=== PATIENT | male | born 1970 | race Caucasian/White ===

== ENCOUNTER 2018-01-06 04:56 | Emergency (ER) | payer BC ==
--- NOTE | 2018-01-06 05:21 | EDM.PDOC ---
<Gerardo Levine - Last Filed: 01/06/18 05:28> ED HPI GENERAL MEDICAL PROBLEM - General Chief Complaint: Abdominal Pain Stated Complaint: RIGHT SIDE ABDOMINAL AND LOWER BACK PAIN Time Seen by Provider: 01/06/18 05:12 Source of Information: Reports: Patient History Limitations: Reports: No Limitations - History of Present Illness INITIAL COMMENTS - FREE TEXT/NARRATIVE: HISTORY AND PHYSICAL: History of present illness: 47-year-old male presenting to emergency department with cc of right flank and right lower quadrant pain starting at 4:00 morning. Patient states that around 0400 this morning when he was getting ready for work he began to have sudden sharp right-sided lower back/flank pain. nitially tried to stretch thinking it was more of a muscle spasm but states that the pain only got worse. Stated the pain is more now in his abdomen. Currently pain is a 2 out of 10 constant and dull. When pain was at his worst it was 8 out of 10 and sharp. Denies any dysuria, hematuria, urgency. No history of kidney stones but does have a family history of stones in his father. Denies any bloody stool or dark tarry stool. Up until this he was feeling his normal usual self. Denies any fever, chills, nausea, vomiting, diarrhea. Currently denies any chest pain, palpitations, shortness of breath, syncopal episodes, focal neurologic deficits. On exam patient has mild right-sided CVA tenderness. Abdomen is soft, nonrigid, nondistended. There is pain on palpation of the right lower quadrant. No rebound tenderness. Positive bowel sounds all 4 quadrants Review of systems: As per history of present illness and below otherwise all systems reviewed and negative. Past medical history: As per history of present illness and as reviewed below otherwise noncontributory. Surgical history: As per history of present illness and as reviewed below otherwise noncontributory. Social history: No reported history of drug or alcohol abuse. Family history: As per history of present illness and as reviewed below otherwise noncontributory. Physical exam: HEENT: Atraumatic, normocephalic, pupils reactive, negative for conjunctival pallor or scleral icterus, mucous membranes moist, throat clear, neck supple, nontender, trachea midline. Lungs: Clear to auscultation, breath sounds equal bilaterally, chest nontender. Heart: S1S2, regular, negative for clicks, rubs, or JVD. Abdomen: Soft, nondistended, right lower quadrant tenderness. Negative for masses or hepatosplenomegaly. Right costovertebral tenderness. Pelvis: Stable nontender. Genitourinary: Deferred. Rectal: Deferred. Extremities: Atraumatic, negative for cords or calf pain. Neurovascular unremarkable. Neuro: Awake, alert, oriented. Cranial nerves II through XII unremarkable. Cerebellum unremarkable. Motor and sensory unremarkable throughout. Exam nonfocal. Diagnostics: CBC, CMP, UA/UC, CT abdomen and pelvis Therapeutics: 1 L normal saline IV 1 Impression: Right flank pain Right lower quadrant abdominal pain Plan: [] Definitive disposition and diagnosis as appropriate pending reevaluation and review of above. Right Lower Abdominal Pain Score (Numeric/FACES): 2 - Related Data Allergies Allergy/AdvReac Type Severity Reaction Status Date / Time Penicillins Allergy Unknown unknown Verified 01/06/18 05:13 Home Meds: Home Meds Tamsulosin HCl [Flomax] 0.4 mg PO DAILY #14 cap.er.24h 01/06/18 [Rx] traMADol HCl [Tramadol HCl] 50 mg PO Q6H PRN #16 tablet 01/06/18 [Rx] Course - Vital Signs Last Recorded V/S: Last Vital Signs Temp 97.6 F 01/06/18 06:43 Pulse 54 L 01/06/18 06:43 Resp 20 01/06/18 06:43 BP 140/86 01/06/18 06:43 Pulse Ox 100 01/06/18 06:43 - Orders/Labs/Meds Orders: Active Orders 24 hr Category Date Time Status Abdomen Pelvis w Cont [CT] Stat Exams 01/06/18 05:26 Taken CULTURE URINE [RM] Stat Lab 01/06/18 05:57 Received Sodium Chloride 0.9% [Saline Flush] Med 01/06/18 05:26 Active 10 ml FLUSH ASDIRECTED PRN Sodium Chloride 0.9% [Saline Flush] Med 01/06/18 05:26 Active 2.5 ml FLUSH ASDIRECTED PRN Sodium Chloride 0.9% [Saline Flush] Med 01/06/18 05:26 Active 2.5 ml FLUSH ASDIRECTED PRN Saline Lock Insert [OM.PC] Stat Oth 01/06/18 05:26 Ordered Medication Orders Sodium Chloride (Saline Flush) 2.5 ml FLUSH ASDIRECTED PRN PRN Reason: Keep Vein Open Last Admin: 01/06/18 05:32 Dose: 2.5 ml Sodium Chloride (Saline Flush) 10 ml FLUSH ASDIRECTED PRN PRN Reason: Keep Vein Open Last Admin: 01/06/18 05:32 Dose: 10 ml Sodium Chloride (Saline Flush) 2.5 ml FLUSH ASDIRECTED PRN PRN Reason: Keep Vein Open Last Admin: 01/06/18 05:33 Dose: 2.5 ml Labs: Laboratory Tests 01/06/18 01/06/18 01/06/18 Range/Units 05:30 05:30 05:57 WBC 7.86 (4.0-11.0) K/uL RBC 5.29 (4.50-5.90) M/uL Hgb 15.6 (13.0-17.0) g/dL Hct 45.3 (38.0-50.0) % MCV 85.6 (80.0-98.0) fL MCH 29.5 (27.0-32.0) pg MCHC 34.4 (31.0-37.0) g/dL RDW Std Deviation 40.8 (28.0-62.0) fl RDW Coeff of Awilda 13 (11.0-15.0) % Plt Count 274 (150-400) K/uL MPV 10.20 (7.40-12.00) fL Neut % (Auto) 52.5 (48.0-80.0) % Lymph % (Auto) 36.1 (16.0-40.0) % [place] % (Auto) 8.5 (0.0-15.0) % Eos % (Auto) 2.8 (0.0-7.0) % Baso % (Auto) 0.1 (0.0-1.5) % Neut # (Auto) 4.1 (1.4-5.7) K/uL Lymph # (Auto) 2.8 H (0.6-2.4) K/uL [place] # (Auto) 0.7 (0.0-0.8) K/uL Eos # (Auto) 0.2 (0.0-0.7) K/uL Baso # (Auto) 0.0 (0.0-0.1) K/uL Nucleated RBC % 0.0 /100WBC Nucleated RBCs # 0 K/uL Sodium 136 (136-148) mmol/L Potassium 3.8 (3.5-5.1) mmol/L Chloride 104 (98-107) mmol/L Carbon Dioxide 23.9 (21.0-32.0) mmol/L BUN 19 H (7.0-18.0) mg/dL Creatinine 1.0 (0.8-1.3) mg/dL Est Cr Clr Drug Dosing 90.34 mL/min Estimated GFR (MDRD) > 60.0 ml/min Glucose 110 H (74-106) mg/dL Calcium 9.1 (8.5-10.1) mg/dL Total Bilirubin 0.5 (0.2-1.0) mg/dL AST 18 (15-37) IU/L ALT 53 (14-63) IU/L Alkaline Phosphatase 80 (46-116) U/L Total Protein 7.6 (6.4-8.2) g/dL Albumin 3.9 (3.4-5.0) g/dL Globulin 3.7 H (2.0-3.5) g/dL Albumin/Globulin Ratio 1.1 L (1.3-2.8) Lipase 116 (73-393) U/L Urine Color YELLOW Urine Appearance CLEAR Urine pH 6.5 (5.0-8.0) Ur Specific [place] 1.020 (1.001-1.035) Urine Protein NEGATIVE (NEGATIVE) mg/dL Urine Glucose (UA) NEGATIVE (NEGATIVE) mg/dL Urine Ketones NEGATIVE (NEGATIVE) mg/dL Urine Occult Blood LARGE H (NEGATIVE) Urine Nitrite NEGATIVE (NEGATIVE) Urine Bilirubin NEGATIVE (NEGATIVE) Urine Urobilinogen 0.2 (<2.0) EU/dL Ur Leukocyte Esterase NEGATIVE (NEGATIVE) Urine RBC 10-15 (0-2/HPF) Urine WBC RARE (0-5/HPF) Ur Epithelial Cells FEW (NONE-FEW) Urine Bacteria FEW (NEGATIVE) Urine Mucus LIGHT (NONE-MOD) Meds: Medications Generic Name Dose Route Start Last Admin Trade Name Freq PRN Reason Stop Dose Admin Sodium Chloride 2.5 ml 01/06/18 05:26 01/06/18 05:32 Saline Flush FLUSH 2.5 ml ASDIRECTED PRN Administration Keep Vein Open Sodium Chloride 10 ml 01/06/18 05:26 01/06/18 05:32 Saline Flush FLUSH 10 ml ASDIRECTED PRN Administration Keep Vein Open Sodium Chloride 2.5 ml 01/06/18 05:26 01/06/18 05:33 Saline Flush FLUSH 2.5 ml ASDIRECTED PRN Administration Keep Vein Open Discontinued Medications Generic Name Dose Route Start Last Admin Trade Name Freq PRN Reason Stop Dose Admin Hydromorphone HCl 2 mg 01/06/18 05:22 01/06/18 05:25 Dilaudid IVPUSH 01/06/18 05:23 Not Given ONETIME ONE Sodium Chloride 1,000 mls @ 999 mls/hr 01/06/18 05:26 01/06/18 05:32 Normal Saline IV 01/06/18 06:26 999 mls/hr BOLUS ONE Administration Iopamidol 100 ml 01/06/18 06:33 01/06/18 06:34 Isovue Multipack-370 (76%) IVPUSH 01/06/18 06:34 100 ml ONETIME STA Administration Ondansetron HCl 4 mg 01/06/18 05:22 01/06/18 05:37 Zofran IVPUSH 01/06/18 05:23 Not Given ONETIME ONE Departure - Departure Disposition: Home, Self-Care 01 Clinical Impression: Ureterolithiasis - Discharge Information Prescriptions: Tamsulosin HCl [Flomax] 0.4 mg PO DAILY #14 cap.er.24h traMADol HCl [Tramadol HCl] 50 mg PO Q6H PRN #16 tablet PRN Reason: Pain Referrals: PCP,None [Primary Care Provider] - Forms: ED Department Discharge Additional Instructions: The following information is given to patients seen in the emergency department who are being discharged to home. This information is to outline your options for follow-up care. We provide all patients seen in our emergency department with a follow-up referral. The need for follow-up, as well as the timing and circumstances, are variable depending upon the specifics of your emergency department visit. If you don't have a primary care physician on staff, we will provide you with a referral. We always advise you to contact your personal physician following an emergency department visit to inform them of the circumstance of the visit and for follow-up with them and/or the need for any referrals to a consulting specialist. The emergency department will also refer you to a specialist when appropriate. This referral assures that you have the opportunity for follow-up care with a specialist. All of these measure are taken in an effort to provide you with optimal care, which includes your follow-up. Under all circumstances we always encourage you to contact your private physician who remains a resource for coordinating your care. When calling for follow-up care, please make the office aware that this follow-up is from your recent emergency room visit. If for any reason you are refused follow-up, please contact the [facility] Emergency Department at and asked to speak to the emergency department charge nurse. Take tramadol for pain and Flomax as directed. Stay well-hydrated follow-up with Dr. Rivero as needed return to ER if symptoms worsen or change. [facility] - Urology [address] [place] [id number] <Drea Laguerre - Last Filed: 01/06/18 07:54> ED HPI GENERAL MEDICAL PROBLEM - History of Present Illness INITIAL COMMENTS - FREE TEXT/NARRATIVE: Patient was signed out to me by Dr. Levine and I have evaluated the patient and agree with above. Patient's CT showed a 3 mm distal right UVJ stone with mild hydronephrosis his kidney function is normal labs and his pain is controlled here in the ED. I will discharge him with a prescription for Flomax, tramadol for pain and referral to Dr. Rivero as needed. ED ROS GENERAL - Review of Systems Review Of Systems: ROS reveals no pertinent complaints other than HPI. ED EXAM, GENERAL - Physical Exam Exam: See Below (ED history of present illness) Departure - Departure Time of Disposition: 07:52 Condition: Good - Discharge Information *PRESCRIPTION DRUG MONITORING PROGRAM REVIEWED*: No *COPY OF PRESCRIPTION DRUG MONITORING REPORT IN PATIENT BIRDIE: No
[2018-01-06] MEDS ORDERED: Ondansetron 4 MG/2 ML SDV IVPUSH ONE (05:22)
[2018-01-06] MEDS ORDERED: HYDROmorphone 1 MG/ML Syringe IVPUSH ONE (05:22)
[2018-01-06] MEDS ORDERED: Sodium Chloride 0.9% 1,000 ML IV ONE (05:26)
[2018-01-06] MEDS ORDERED: Sodium Chloride 0.9% 2.5 ML Syringe FLUSH PRN ×2 (05:26)
[2018-01-06] MEDS ORDERED: Sodium Chloride 0.9% 10 ML Syringe FLUSH PRN (05:26)
[2018-01-06 05:53] LABS: CHLORIDE,CL 104 mmol/L (98-107); SODIUM,NA 136 mmol/L (136-148)
[2018-01-06] MEDS ORDERED: Iopamidol 755 MG/ML 500 ML Multipack Bottle IVPUSH STA (06:33)
--- NOTE | 2018-01-06 09:49 | CT ---
EXAM DATE: 01/06/18 PATIENT'S AGE: 47 Patient: JOSE SANCHEZ Facility: [place], [place] Site . Site : [id number] Study: CT Abdomen/Pelvis [id number]/2/2018 6:37:06 AM Ordering Physician: Abner Carrillo Final Report: INDICATION: pain, RLQ x 2 hours HISTORY: Right lower quadrant abdominal pain. COMPARISON: None. TECHNIQUE: CT of the abdomen and pelvis. 100 cc of Isovue-370 IV. Coronal/sagittal reconstruction images. FINDINGS: Lung bases: There is no pleural or pericardial effusion. The heart size is normal. There is no acute airspace disease. There is mild dependent atelectasis. There is no basilar pneumothorax. Abdomen/pelvis: Low-dense hepatic lesions are too small further characterize, but most likely benign cysts. The largest is seen in segment 7 of the liver, which measures 7 mm in image 28, series 201. There is no adrenal mass. The spleen size is normal. There is no pancreatic mass or pancreatic duct dilation. No glandular atrophy. Symmetric nephrograms. Mild right hydronephrosis and hydroureter. There is a stone present in the distal right ureter, just proximal to the right UVJ, measuring 3 mm on image 136, series 201. No drainable perinephric fluid collection. There is no contralateral urolith. The extraperitoneal space of Retz[place] is clear. There is extensive colonic diverticulosis. There are no findings for diverticulitis. No transition point to indicate a mechanical small bowel or colonic obstruction. No evidence for appendicitis. The appendix is normal in caliber, seen on image 104, series 201. There is no adenopathy by size criteria in the pelvis, retroperitoneum, gastrohepatic ligament, small bowel mesentery. Portal vein and its branches, splenic vein, and SMV are patent. Ventral wall abdominal hernia containing fat, with no enteric compromise. This measures 15 mm in image 84, series 201. Bone windows demonstrate no lytic or blastic bone lesions. The alignment is preserved. On sagittal reconstruction images, the vertebral body heights are maintained. IMPRESSION: 1. 3 mm stone in the distal right ureter, just proximal to the right UVJ. Mild associated hydronephrosis. Nephrograms appear symmetric. 2. Normal caliber appendix. No adjacent inflammatory changes. 3. No abdominal/pelvic lymphadenopathy. Dictated by Armin Patel MD @ 01/06/2018 7:06:45 AM Please note that all CT scans at this facility use dose modulation, iterative reconstruction, and/or weight-based dosing when appropriate to reduce radiation dose to as low as reasonably achievable. Dictated by: Armin Patel MD @ 01/06/2018 07:06:56 (Electronic Signature) Report Signed by Proxy. MTDD
== END 2018-01-06 08:05 | disposition home or self-care (01) ==
LOC: MW.ED 04:56
DX: N13.2 Hydronephrosis with renal and ureteral calculous obstruction (principal); Z88.0 Allergy status to penicillin
CPT/HCPCS: 36415; 74177; 80053; 81001; 83690; 85025; 87086; 96360; 96361; 99284; J7040; Q9967